=== PATIENT | male | born 1930 | race Caucasian/White ===

== ENCOUNTER → 2016-10-01 | Outpatient (CLI) | payer OTHER ==
[~2016-10-01] MED LIST: AMT25; ASPI325T45 PO; CARV6.252 PO; CHOL1CAP57 PO; DULO60CA44 PO; GLIM1TAB2 PO; HYDR-3983 PO; IRBE-37 PO; PARO1TAB27 PO; SPIR25TA PO; TAMS0.4C59 PO
[2016-10-01 13:16] VITALS: BP 142/83; PULSE 70; TEMP 36.8; O2SAT 95
--- NOTE | 2016-10-01 15:43 | Radiation Oncology Follow-Up ---
Radiation Oncology Follow-Up Date of Visit Oct 01, 2016. Reason For Visit Annual follow up Radiation Completion Date 08/28/13 Diagnosis (1) Prostate cancer Status: Resolved Onset Date: 01/26/2013 Location: both lobes of the prostate Histology Subtype: adenocarcinoma Stage: ll Permanent Comment: Rising PSA 12.1, clinical stage TIC Status post ultrasound-guided biopsies, biopsy stage T2c, [place] grade 3+4 Status post completion of radiation therapy 08/28/2013 received 8040 cGy utilizing IMRT/IGRT no hormone suppression due to comorbidities. Last Edited By : Sarah Dykes on Oct 03, 2014 14:33 Interim History He feels he is stable from urinary standpoint. His AUA score this year was 12. Last year he gave a score of 13. He is now on mybetrix from Dr. Judge. He completed expanded prostate cancer index composite for clinical practice and gave a score of 4 of 12 in urinary incontinence symptoms. He gave a score of 3 of 12 in urinary irritation symptoms. He gave a score of 3 of 12 bowel symptoms. He given score 7 of 12 and sexual symptoms. He gave a score of 6 of 12 and hormonal vitality symptoms. His total was 23 of 60. This is the same score as last year. He is having the PSAs followed through his primary care physician. He had a PSA 09/30/2015 and that was 0.12. He is not due for a recheck PSA. He would like to have that performed with his other lab studies that are ordered for next week. He has had admissions to [facility] over this past year. He had fallen. He did not sustain any fractures. Today he describes a feeling of chest pressure last evening. He took a nitroglycerin and this was resolved. There has been no recurrence of the pain today. Allergies Coded Allergies: No Known Allergies (Unverified , 03/07/13) NKA Home Medications Scheduled Amitriptyline HCl (Amitriptyline HCl), DAILY Aspirin (Aspirin), 1 TAB PO DAILY Carvedilol (Coreg), 6.25 MG PO BID Cholecalciferol (Vitamin D3), 1 CAP PO DAILY Duloxetine Hcl (Cymbalta), 1 CAP PO DAILY Glimepiride (Glimepiride), 1 TAB PO DAILY Irbesartan (Avapro), 1 TAB PO DAILY Paroxetine (Paxil), 10 MG PO DAILY Spironolactone (Aldactone), 25 MG PO DAILY Tamsulosin Hcl (Flomax), 0.4 MG PO DAILY Scheduled PRN Hydrocodone/Acetaminophen 7.5MG/325MG (Ford 7.5MG/325MG), 1 TAB PO Q4H PRN for Pain Review of Systems Gastrointestinal: Symptoms: WNL GI Comments: alternates between diarrhea and constipation Oral: Symptoms: No Problems Respiratory: Symptoms: SOB With Exertion Urinary: Symptoms: Incontinence Comments: urggency Skin: Symptoms: No Problems Physical Exam Vital Signs Date Time Temp Pulse Resp B/P Pulse Ox O2 Delivery O2 Flow Rate FiO2 10/01/16 13:16 36.8 70 20 142/83 95 Pain: Pain Onset: 3 months Pain Duration: intermet Side: Bilateral Patient Pain Scale: 0 - 10 Initial Pain Intensity: 0.0 Additional Comments: pt states just a pain Fatigue: None General Appearance: no apparent distress Eyes: normal inspection, EOMI ENT: normal ENT inspection, hearing grossly normal Neck: no adenopathy, thyroid normal Respiratory/Chest: lungs clear, no respiratory distress, no accessory muscle use Cardiovascular: regular rate, rhythm, no gallop, no murmur Abdomen: non tender, soft, no organomegaly Anal / Rectum: Deferred Extremities: no pedal edema Neurologic/Psychiatric: no motor/sensory deficits, alert, normal mood/affect Skin: warm/dry Laboratory Studies Most recent PSA was 09/30/2015 at [facility]. This was 0.12. Assessment & Plan Plan: An order was given to his daughter to have a PSA at his next blood draw. He'll be notified as to the results. Continue follow-up with his primary care physician and Dr. Judge. I discussed with them the concern for the chest pain he has been having. This sounds to be angina. I've asked his daughter to call his primary care physician today and review his current symptoms. He is also to go to the emergency room immediately should he have any further recurrence of the chest pain we asked him to return to our office in 1 year. He may call our office if he has questions or concerns in the interim. Total Time In Follow-Up I spent 20 minutes speaking to the patient performing examination. I spent 15 minutes reviewing information and completing this note. Copy To Marilu Madrigal M.D.; Carlo Judge MD
== END | disposition home or self-care (01) ==
LOC: C.ONC 13:01
PROVIDERS: ATTEND Physician Assistant Medical
DX: Z08 Encounter for follow-up examination after completed treatment for malignant neoplasm (principal); Z92.3 Personal history of irradiation; Z85.46 Personal history of malignant neoplasm of prostate